=== PATIENT | female | born 1945 | race Caucasian/White ===

== ENCOUNTER 2017-10-13 19:52 | Emergency (ER) | payer BC, MEDICARE ==
[~2017-10-13 19:52] MED LIST: Iopamidol 370 76% 100 ML VIAL ONE; Sodium Chloride 0.9% 1,000 ML BAG ONE
[2017-10-13] MEDS ORDERED: Famotidine In NaCl 20 mg/50 ml Premix Bag ONE (20:18)
[2017-10-13] MEDS ORDERED: Ondansetron HCl/PF 4 MG/2 ML Vial ONE (20:18)
[2017-10-13] MEDS ORDERED: Fentanyl 100 MCG/2 ML VIAL ONE ×2 (20:18→22:31)
[2017-10-13 20:45] LABS: #Eosinphils 0.1 thou/uL (0.0-0.7); #Lymphocytes 1.5 thou/uL (1.20-3.40); #Monocytes 0.5 thou/uL (0.11-0.59); #Neutrophils 7.7 thou/uL (1.40-6.50); %Basophils 0.3 % (0.0-1.0); %Eosinophils 0.6 % (0.0-10.0); %Lymphocytes 15.2 % (21.0-51.0); %Monocytes 5.3 % (0.0-10.0); %Neutrophils 78.6 % (42.0-75.0); Hemoglobin 16.7 g/dL (12.0-16.0); Mean Corpuscular HGB CONC 33.4 g/dL (32.0-36.0); Mean Corpuscular Hemoglobin 28.6 pg (27.0-31.0); Mean Corpuscular Volume 85.9 fl (81.0-99.0); Mean Platelet Volume 7.2 fL (7.4-10.4); Platelet Count 297 thou/uL (130-400); RBC Distribution Width 12.6 % (11.5-14.5); Red Blood Cell (RBC) Count 5.82 mill/uL (4.20-5.40); White Blood Cell (WBC) Count 9.8 thou/uL (4.8-10.8)
[2017-10-13 20:58] LABS: ALT (SGPT) 14 U/L (8-55); AST (SGOT) 13 U/L (5-34); Albumin 4.1 g/dL (3.4-4.8); Alkaline Phosphatase 110 U/L (40-150); Anion Gap 19 mmol/L (10-20); BUN (Urea Nitrogen) 15 mg/dL (9.8-20.1); Bilirubin, Total 0.8 mg/dL (0.2-1.2); Calc. Creatinine Clearance 0 mL/min (70-130); Calcium 9.5 mg/dL (7.8-10.44); Carbon Dioxide 28 mmol/L (23-31); Chloride 95 mmol/L (98-107); Estimated GFR-MDRD 74; Globulin 3.9 g/dL (2.4-3.5); Glucose 156 mg/dL (83-110); Potassium 3.2 mmol/L (3.5-5.1); Sodium 139 mmol/L (136-145)
[2017-10-13 21:05] LABS: CKMB 2.7 ng/mL (0-6.6); Troponin I 0.016 ng/mL (< 0.028)
[2017-10-13 21:15] LABS: Bilirubin Small (Negative); Blood, Urine Trace (Negative); Clarity Slightly Cloudy (Clear); Glucose, Urine (Dipstick) Negative (Negative); Leukocyte Trace (Negative); Nitrite Positive (Negative); Protein, Urine (Dipstick) 30 mg/dL (Neg-Trace); pH, Urine 5.5 (5.0-9.0)
[2017-10-13 21:21] LABS: Bacteria/HPF 4+ HPF (None Seen); WBC/HPF 21-50 HPF (0-3)
[2017-10-13] MEDS ORDERED: cefTRIAXone\\ROCEPHIN 1 GM VIAL ONE (21:52)
--- NOTE | 2017-10-13 22:40 | CT ---
CT ABDOMEN AND PELVIS WITH IV CONTRAST: 10/13/2017 PROVIDED CLINICAL HISTORY: Abdominal pain. COMPARISON: None. FINDINGS: The visualized lung bases are free of significant opacity. There is a ventral abdominal hernia, cont aining multiple loops of fluid-filled small bowel, which is also dilated. A portion of the transvers e colon is also herniated into this defect. There is dilatation of small bowel proximal to the herni a as well. There is no evidence for pneumatosis or portal venous gas. No pneumoperitoneum. A small fat-containing ventral hernia is seen involving the upper abdomen as well. The solid abdominal organs demonstrate an unremarkable CT appearance, with the exception of a coarse focus of calcification involving the left adrenal gland. Changes of a prior cholecystectomy are seen . The osseous structures demonstrate no concerning lytic or blastic lesions. IMPRESSION: Small bowel obstruction due to a large ventral abdominal hernia. Fluid density is noted about some o f the small bowel loops within the hernia sac. Correlation for incarceration recommended. Surgical consultation recommended. POS: [facility]
== END 2017-10-14 00:01 | disposition short-term general hospital (02) ==
LOC: MADERS 19:52
DX: K56.609 Unspecified intestinal obstruction, unspecified as to partial versus complete obstruction (principal); N39.0 Urinary tract infection, site not specified; E03.9 Hypothyroidism, unspecified; F32.9 Major depressive disorder, single episode, unspecified; F17.210 Nicotine dependence, cigarettes, uncomplicated
CPT/HCPCS: 36415; 51702; 74177; 80053; 81003; 81015; 82150; 82553; 84484; 85025; 93005; 94760; 96361; 96365; 96375; 96376; A4353; J0696; J2405; J3010; J7050